=== PATIENT | female | born 1970 | race Two or more races ===

== ENCOUNTER 2024-07-23 06:56 | Emergency (ER) | payer MEDICAID, SELFPAY ==
[2024-07-23 06:57] VITALS: BMI 28.1
[2024-07-23 07:05] VITALS: BP 144/90; PULSE 97; RESP 20; TEMP 36.8; O2SAT 95; BMI 28.1
--- NOTE | 2024-07-23 07:29 | XR_ITS ---
Examination: CT abdomen and pelvis without contrast. Coronal 3-D reconstructions. Sagittal 2-D reconstructions. Date and time of exam:July 23, 2024 1056 hours Comparison October 16, 2018 INDICATIONS: Mid abdominal pain with nausea beginning 2 days ago CTDI: vol (mGy): 8.1 DLP: (mGycm): 442 Technique: Axial images of the abdomen have been obtained, 3 mm slice thickness Intravenous contrast material has not been administered. Low dose protocols were performed. One or more of the following dose reduction techniques were used; automated exposure control, adjustment of the mA and/or KV according to patient size, use of iterative reconstruction technique. Findings: Multiple liver cysts again noted Absent gallbladder Spleen not enlarged No pancreatic or adrenal mass Multiple tiny 1 to 2 mm bilateral renal calculi, no hydronephrosis or ureteral calculi No pericecal inflammatory change No bowel obstruction Retroverted uterus, no uterine or adnexal mass Urinary bladder wall thickened up to 4 mm no bladder calculi Severe osteopenia IMPRESSION: Multiple bilateral nonobstructing renal calculi, no hydronephrosis or ureteral calculi No CT findings of appendicitis bowel obstruction or diverticulitis
--- NOTE | 2024-07-23 07:30 | PD.EDABDPN ---
ED Abdominal Pain RME/HPI General Chief Complaint: Abdominal Pain Stated complaint: HEADACHE, ABD PAIN, VOMITING Time seen by provider: 07/23/24 07:47 Arrival date/time: 07/23/24 06:56 54 year old female with a history of hypertension presents to the emergency room with generalized 6/10 abdominal pain, vomiting and headaches x2 days Source: patient Mode of arrival: ambulatory Limitations: no limitations Related Data Home Medications ?Medication ?Instructions ?Recorded ?Confirmed lisinopril 20 mg tablet 20 mg PO QDAY 03/15/19 09/12/21 Previous Rx's ?Medication ?Instructions ?Recorded aspirin 81 mg tablet,delayed 81 mg PO QDAY #30 tabs 03/17/19 release (Aspir-Low) metoprolol tartrate 25 mg tablet 25 mg PO BID #60 tabs 03/17/19 acetaminophen 325 mg capsule 650 mg (2 x 325 mg) PO QID PRN 07/23/24 fever or pain 7 days #30 caps ondansetron 4 mg disintegrating 4 mg PO Q8H PRN nausea and 07/23/24 tablet vomiting #14 tabs Allergies Allergy/AdvReac Type Severity Reaction Status Date / Time No Known Allergies Allergy Verified 07/23/24 06:59 Review of Systems Review of Systems Systems Reviewed: All systems reviewed, normal except as documented Constitutional Constitutional: Reports system reviewed and no additional complaints, except as documented, Denies fatigue, Reports fever(s), Denies headache(s) and Reports weakness Eyes Eyes: Reports system reviewed and no additional complaints, except as documented, Denies blurry vision and Denies change in vision ENT Ears, Nose, Mouth, and Throat: Reports system reviewed and no additional complaints, except as documented, Denies otalgia, Denies headache(s), Denies nasal congestion, Denies throat swelling and Denies vertigo Cardiovascular Cardiovascular: Reports system reviewed and no additional complaints, except as documented, Denies chest pain, Denies dyspnea and Denies dyspnea on exertion Respiratory Respiratory: Reports system reviewed and no additional complaints, except as documented, Denies chest congestion, Denies cough, Denies dyspnea, Denies dyspnea on exertion and Denies wheezing Gastrointestinal Gastrointestinal: Reports system reviewed and no additional complaints, except as documented, Reports abdominal pain, Reports cramping, Reports nausea and Denies vomiting Genitourinary Genitourinary: Reports system reviewed and no additional complaints, except as documented Musculoskeletal Musculoskeletal: Reports system reviewed and no additional complaints, except as documented and Denies back pain Integumentary/Breasts Skin/Breast: Reports system reviewed and no additional complaints, except as documented and Denies wounds Neurologic Neurologic: Reports system reviewed and no additional complaints, except as documented, Denies confusion, Denies headache(s), Denies lack of coordination, Denies vertigo and Reports weakness Psychiatric Psychiatric: Reports system reviewed and no additional complaints, except as documented, Denies anxiety, Denies confusion, Denies depression, Denies paranoia, Denies suicidal ideation and Denies tactile hallucinations Endocrine Endocrine: Reports system reviewed and no additional complaints, except as documented and Denies fatigue Hematologic/Lymphatic Hematologic/Lymphatic: Reports system reviewed and no additional complaints, except as documented and Denies lymphadenopathy Allergic/Immunologic Allergic/Immunologic: Reports system reviewed and no additional complaints, except as documented, Denies throat swelling, Denies urticaria and Denies wheezing Past Medical History Past Medical History NEUROLOGIC: Negative Seizures CARDIAC: Positive Hypertension; Negative Cardiac Disorders or Congestive Heart Failure RESPIRATORY: Negative Chronic Obstructive Pulmonary Disease (COPD) or Asthma GENITOURINARY: Negative Renal Disease ENDOCRINE: Negative Diabetes Mellitus Type 1 or Diabetes Mellitus Type 2 HEMATOLOGIC: Negative Sickle Cell Disease OTHER HISTORY: Negative Blood Transfusions, Blood Transfusion Reaction, Anesthesia Reactions or Cancer Family History FAMILY HISTORY: Positive Family Cardiac Disorders Surgical History SURGICAL: Positive Section Social History SMOKING STATUS: Never smoker SUBSTANCE USE: does not use ED Exam General Limitations: Present no limitations General appearance: Present alert and in no apparent distress Head Head exam: Present atraumatic Eye Eye exam: Present normal appearance, PERRL and EOMI ENT ENT exam: Present normal exam, normal oropharynx and mucous membranes moist Neck Neck exam: Present normal inspection, full ROM and trachea midline Chest Chest inspection: Present normal inspection and symmetric chest wall rise Respiratory Respiratory exam: Present normal lung sounds bilaterally; Absent respiratory distress, wheezes, stridor or accessory muscle use Cardiovascular Cardiovascular exam: Present regular rate, normal rhythm and normal heart sounds; Absent bradycardia, tachycardia or irregular rhythm Abdominal Exam Abdominal exam: Present soft, tenderness and normal bowel sounds; Absent guarding, rebound, Ashby's sign, Rovsing's sign or tenderness at McBurney's Point Abdominal tenderness: Present epigastrium and moderate Extremities Exam Extremities exam: Present normal inspection and full ROM Back Exam Back exam: Present normal inspection and full ROM Neurological Exam Neurological exam: Present alert, oriented X3 and CN II-XII intact Psychiatric Psychiatric exam: Present normal affect and normal mood Skin Skin exam: Present warm, dry, intact and normal color Course Quality Measures none Orders Category Date Time Status CT abdomen pelvis wo con Stat Exams 07/23/24 07:29 Completed CBC Stat Lab 07/23/24 07:45 Completed CMP [Comprehensive Metabolic Panel] Stat Lab 07/23/24 07:45 Completed HCG Qualitative,Urine Stat Lab 07/23/24 08:04 Completed Lipase Stat Lab 07/23/24 07:45 Completed UA [Urinalysis] Stat Lab 07/23/24 08:04 Completed Urine Culture Stat Lab 07/23/24 08:04 Received Ondansetron Odt [Zofran Odt] Med 07/23/24 07:29 Discontinued 4 mg PO X1 ONE mg Hyd/Al Hyd/Neel Susp [Maalox Susp] Med 07/23/24 07:29 Discontinued 30 ml PO X1 ONE Vital Signs Vital signs: Vital Signs Temperature 98.3 F 07/23/24 07:05 Pulse Rate 97 07/23/24 07:05 Respiratory Rate 20 07/23/24 07:05 Blood Pressure 144/90 H 07/23/24 07:05 Pulse Oximetry (%) 95 07/23/24 07:05 Oxygen Delivery Method Room Air 07/23/24 07:05 O2 saturation 95% within normal limits Abdominal Pain MDM MDM Narrative MDM Narrative:: 54 year old female with a history of hypertension presents to the emergency room with generalized 6/10 abdominal pain, vomiting and headaches x2 days Patient is hemodynamically stable and in no apparent distress Physical examination shows clear bilateral lung sounds with no wheezing or abnormal breath sounds Patient has 6 out of 10 abdominal epigastric pain with palpation. There is no right lower quadrant abdominal pain or tenderness. There is no Ashby sign. Influenza test was positive CT of the abdomen and pelvis showed bilateral renal calculi. There is none in the ureters. Patient was discharged and educated to follow-up with primary care provider and return to the emergency room for any evidence of worsening signs or symptoms Patient data External records reviewed:: [facility] [place] previous records Clinical information provided by:: patient Social determinants that could affect healthcare access:: none Patient has the following chronic illnesses:: No chronic illness How is presenting disease/condition affected by chronic disease/condition?: no chronic disease Evaluation data The following diagnostics were reviewed and interpreted by me:: lab results and radiology exam(s) Lab and/or radiology exams considered but not ordered:: Labs and radiology exams considered and ordered Interpretation Summary: CT abdomen and pelvis-Findings: Multiple liver cysts again noted Absent gallbladder Spleen not enlarged No pancreatic or adrenal mass Multiple tiny 1 to 2 mm bilateral renal calculi, no hydronephrosis or ureteral calculi No pericecal inflammatory change No bowel obstruction Retroverted uterus, no uterine or adnexal mass Urinary bladder wall thickened up to 4 mm no bladder calculi Severe osteopenia IMPRESSION: Multiple bilateral nonobstructing renal calculi, no hydronephrosis or ureteral calculi No CT findings of appendicitis bowel obstruction or diverticulitis Medications / Prescriptions Medications or Prescriptions considered but not ordered:: Medication given Medication administrations:: Medication Administration History Discontinued Medications Al Hydrox/Mg Hydrox/Simethicone (Mg Hyd/Al Hyd/Neel (Maalox Reg) Susp 30 Ml Udc) 30 ml PO X1 ONE Stop: 07/23/24 07:30 Last Admin: 07/23/24 07:37 Dose: 30 ml Documented By: ED Ondansetron HCl (Ondansetron Odt 4 Mg Tabrap) 4 mg PO X1 ONE; Protocol Stop: 07/23/24 07:30 Last Admin: 07/23/24 07:37 Dose: 4 mg Documented By: ED Medication given Consultations Consultation(s) initiated? (list below): No Diagnosis Differential diagnosis abdominal pain: abdominal pain, acute appendicitis, calculus of kidney, constipation, diverticulitis, endometriosis, gastroenteritis and other (Influenza A/calculus of kidney) Most likely diagnosis given after review of the tests above:: Influenza A Admission Indicated Admission indicated?: not indicated Admission Request Was there a request for admission?: No Disposition Plan Disposition Plan: Discharge Discharge Attestation Discharge Attestation: The patient and all family members were given an opportunity to ask questions and understood the discharge instructions. Discharge instructions specifically effects, indications for sooner follow up or return to the emergency department, and the expected course of current diagnosis. Patient condition: Stable Discharge Plan Plan Patient Disposition: HOME (Self Care) Disposition Comment: Stable Prescriptions/Referrals Prescriptions/Med Rec: New ondansetron 4 mg tablet,disintegrating 4 mg PO Q8H PRN (Reason: nausea and vomiting) Qty: 14 0RF acetaminophen 325 mg capsule 650 mg PO QID PRN (Reason: fever or pain) 7 Days Qty: 30 0RF No Action lisinopril 20 mg Tablet 20 mg PO QDAY aspirin [Aspir-Low] 81 mg Tablet,Delayed Release (Dr/Ec) 81 mg PO QDAY Qty: 30 0RF metoprolol tartrate 25 mg Tablet 25 mg PO BID Qty: 60 0RF Referrals: Pipe Landon PA-C [Primary Care Provider] - In 1 week Problem List Clinical Impression: Influenza A, Bilateral renal stones Patient/Caregiver Discharge Instructions Education Materials: ED Influenza (Adult), ED Kidney Stone w/ Colic Additional Instructions: Deonte un seguimiento con ventura proveedor de atenci?n primaria en las pr?ximas 24 a 48 horas. Tiene m?ltiples c?lculos en el ri??n. Consulte con ventura proveedor de atenci?n primaria para shanique evaluaci?n adicional. Ventura prueba de influenza A christianne positivo. Contin?e tomando Tylenol e ibuprofeno para controlar la fiebre y aumente ventura ingesta de l?quidos orales. Ante cualquier evidencia de empeoramiento de los signos o s?ntomas, regrese a la jeovany de emergencias de inmediato. Print Language: [place] Stand Alone Forms: Jane Award Info., Work/School Release, Patient Portal Info Letter PA/FAUSTINO Supervising Physician PA/FAUSTINO Supervising Physician: Dr Gaytan
[2024-07-23] MEDS: ONDANSETRON ODT 4 MG TABRAP PO (07:37)
[2024-07-23] MEDS: MG HYD/AL HYD/SIME (Maalox Reg) SUSP 30 ML UDC PO (07:37)
[2024-07-23 08:04] LABS: Basophils % (Auto) 0 % (0-2.5); Eosinophils % (Auto) 0 % (0-10); Hematocrit 43.7 % (36.0-46.0); Hemoglobin 15.2 g/dL (12.0-16.0); Immature Granulocytes % (Auto) 0 % (0-0); Immature Granulocytes Auto 0.01 Thou/mm3 (0.00-0.00); Lymphocytes # (Auto) 1.1 Thou/mm3 (1.0-4.8); Lymphocytes % (Auto) 17 % (10-50); Mean Corpuscular HGB Conc 34.8 g/dl (31.0-37.0); Mean Corpuscular Hemoglobin 29.9 pg (25.0-35.0); Mean Corpuscular Volume 86 fL (80-100); Monocytes # (Auto) 0.9 Thou/mm3 (0.0-0.8); Monocytes % (Auto) 15 % (0-12); Neutrophils # (Auto) 4.3 Thou/mm3 (1.8-7.7); Neutrophils % (Auto) 68 % (37-80); Nucleated Red Blood Cell % 0 /100 WBC (0); Platelet Count 234 Thou/mm3 (140-440); RDW Standard Deviation 39.8 fL (36.4-46.3); Red Blood Count 5.09 Miln/mm3 (4.00-5.20); White Blood Count 6.2 Thou/mm3 (3.6-11.0)
[2024-07-23 08:12] LABS: Alanine Aminotransferase 32 U/L (10-49); Albumin, Serum 4.7 gm/dL (3.5-5.0); Albumin/Globulin Ratio 1.5 (1.2-2.2); Alkaline Phosphatase 65 U/L (46-116); Anion Gap 9 (7-16); Aspartate Amino Transferase 28 U/L (0-34); BUN/Creatinine Ratio 23 Ratio (12-20); Bilirubin,Total 0.6 mg/dL (0.3-1.2); Blood Urea Nitrogen 18 mg/dL (9-23); Calcium 11.1 mg/dL (8.3-10.6); Calcium (Corrected) 11.1 mg/dL (8.5-10.1); Carbon Dioxide 25.8 mMol/L (20.0-31.0); Chloride 106 mMol/L (98-107); Creatinine (Component) 0.8 mg/dL (0.6-1.3); Estimated Creatinine Clearance 81.3 mL/min (>60); Globulin 3.1 gm/dL (2.3-3.5); Glucose 101 mg/dL (74-106); Lipase 35 U/L (12-53); Osmolality,Calculated 283 (275-295); Potassium 3.8 mMol/L (3.4-5.1); Sodium 141 mMol/L (136-145); Total Protein 7.8 gm/dL (5.7-8.2); eGFR > 60 See Note
[2024-07-23 08:21] LABS: Collection Type, Urine Clean Catch
[2024-07-23 08:37] LABS: Amorphous Crystals,Urine Present (Absent); Bacteria,Urine Rare; Bilirubin,Urine Negative (Negative); Blood,Urine 2+ (Negative); Color,Urine Yellow (Lt Yel-Yel); Glucose, Urine Negative (Negative); Ketones,Urine 1+ (Negative); Leukocyte Esterase,Urine Negative (Negative); Nitrite,Urine Negative (Negative); Protein,Urine 1+ (Neg - Trace); RBC,Urine 13 /hpf (0-3); Specific Gravity,Urine 1.022 (1.001-1.035); Squamous Epithelial Cell,Urine 6 /hpf (0-5); Urobilinogen,Urine Negative mg/dL (0.0-1.0); WBC,Urine 6 /hpf (0-5)
[2024-07-23 09:12] LABS: Clarity,Urine Cloudy (Clear/Hazy)
[2024-07-23 09:36] LABS: HCG Qualitative,Urine Negative
== END 2024-07-23 12:17 | disposition home or self-care (01) ==
PROVIDERS: Nurse Practitioner Family; Emergency Provider Emergency Medicine; PCP Family Medicine
DX: J10.1 Influenza due to other identified influenza virus with other respiratory manifestations (principal); N20.0 Calculus of kidney
CPT/HCPCS: 36415; 74176; 80053; 81001; 81025; 83690; 85025; 87086; 87400; 87811; 99284; Q0162; A9270

== ENCOUNTER → 2024-09-17 | Outpatient (CLI) | payer MEDICAID, SELFPAY ==
--- NOTE | 2024-09-17 07:15 | XR_ITS ---
Examination: Abdomen sonogram, complete Date and time of exam: September 17, 2024 0718 hrs. Indications: Right upper abdominal pain beginning 5 years ago. Technique: Multiple real-time grayscale transabdominal sonographic images of the abdomen have been obtained. Findings: Absent gallbladder Normal common bile duct 0.2 cm Pancreatic head 3.0 cm Aorta not enlarged. Liver 15.8 cm with multiple benign cysts, the largest in the left lobe the liver 6.6 cm Normal hepatopedal portal venous flow Patent IVC Right kidney 11.1 cm cortex 1.5 cm Left kidney 10.3 cm cortex 1.8 cm No hydronephrosis Spleen 10.1 Impression: Normal common bile duct Benign liver cystic disease
== END | disposition home or self-care (01) ==
LOC: CDIM 06:53
PROVIDERS: PCP Family Medicine; Referring Provider Internal Medicine Gastroenterology; Visit Provider Internal Medicine Gastroenterology
DX: K76.89 Other specified diseases of liver (principal)
CPT/HCPCS: 76700

== ENCOUNTER → 2024-10-14 | Outpatient (CLI) | payer MEDICAID, SELFPAY ==
--- NOTE | 2024-10-14 16:00 | XR_ITS ---
Examination: Breast ultrasound, unilateral, left Date and time of exam: October 14, 2024 1406 hours INDICATIONS: Left breast sonogram November 20, 2023 3:00 nodule 10 x 5 mm Technique: Real-time harmon scale ultrasonographic imaging performed left breast including all 4 quadrants as well as nipple retroareolar and axillary region. Findings: Clinical coccyx is 5 x 6 mm 3:00 nodule lobular with calcifications 10 x 6 mm 3:00 cyst 15 x 12 mm IMPRESSION: BI-RADS Category 3: Probably benign findings. Recommend one additional 6 month left breast sonogram follow-up to document stability of 3:00 nodule described above
== END | disposition home or self-care (01) ==
PROVIDERS: PCP Family Medicine; Referring Provider Family Medicine; Visit Provider Family Medicine
DX: N63.25 Unspecified lump in the left breast, overlapping quadrants (principal)
CPT/HCPCS: 76641